=== PATIENT | female | born 1965 | race Caucasian/White ===

== ENCOUNTER 2018-12-19 17:17 | Emergency (ER) | payer BC ==
[2018-12-19] MEDS ORDERED: Sodium Chloride 0.9% 10 ML Syringe FLUSH PRN (17:55)
[2018-12-19 18:16] LABS: ANION GAP 14.7 mmol/L (5-15); CHLORIDE,CL 94 mmol/L (98-115); SODIUM,NA 131 mmol/L (136-145)
--- NOTE | 2018-12-19 18:16 | EDM.PDOC ---
ED HPI GENERAL MEDICAL PROBLEM - General Chief Complaint: General Stated Complaint: foot wound Time Seen by Provider: 12/19/18 17:54 Source of Information: Reports: Patient History Limitations: Reports: No Limitations - History of Present Illness INITIAL COMMENTS - FREE TEXT/NARRATIVE: Patient is a 53-year-old female who presents to the emergency department this evening with a complaint of right foot discomfort, odor, and concern because she hasn't had recent wound care. Patient states that she was undergoing wound care at [facility] in [place], but has not been seen there over the last week. Patient is an insulin-dependent diabetic with poor glucose control. Patient underwent retinal eye surgery at [facility] in [place] one month ago. Patient is currently being treated at the wound center in [place] for right foot concern and has even undergone hyperbaric therapy. Patient denies chest pain, fever, nausea, vomiting, diarrhea, or abdominal pain. Onset: Gradual, Unknown/Unsure Duration: Day(s): Location: Reports: Lower Extremity, Right Quality: Reports: Ache Severity: Moderate Improves with: Reports: None Worsens with: Reports: None Context: Reports: Other (Denies trauma) Associated Symptoms: Reports: No Other Symptoms Headache Pain Score (Numeric/FACES): 10 - Related Data Allergies Allergy/AdvReac Type Severity Reaction Status Date / Time latex Allergy Hives Verified 12/19/18 17:36 Penicillins Allergy Hives Verified 12/19/18 17:36 sulfur dioxide Allergy Hives Verified 12/19/18 17:36 Home Meds: Home Meds Acetaminophen [Tylenol Extra Strength] 500 mg PO Q4HR 12/19/18 [History] Aspirin [Ecotrin EC] 81 mg PO WITHDINNER 12/19/18 [History] Buprenorphine [Butrans] 1 each TD WEEKLY 12/19/18 [History] Cyclobenzaprine HCl [Amrix] 15 mg PO BEDTIME 12/19/18 [History] Erythromycin Base [Erythromycin 0.5% Ophth Oint] 1 applic EYEBOTH Q12H 12/19/18 [History] Furosemide [Lasix] 20 mg PO BID 12/19/18 [History] Insulin Isophane NPH, Human [NovoLIN N] 0 unit SQ ACBRK 12/19/18 [History] Insulin Regular, Human [NovoLIN R] 0 unit SQ WITHMEALSANDBED 12/19/18 [History] Losartan [Cozaar] 25 mg PO BEDTIME 12/19/18 [History] Meloxicam [Mobic] 15 mg PO BEDTIME 12/19/18 [History] Pregabalin [Lyrica] 75 mg PO ASDIRECTED 12/19/18 [History] Pregabalin [Lyrica] 150 mg PO BEDTIME 12/19/18 [History] atorvaSTATin Calcium [Lipitor] 40 mg PO BEDTIME 12/19/18 [History] clonazePAM [Klonopin] 0.5 mg PO ASDIRECTED PRN 12/19/18 [History] clonazePAM [Klonopin] 1 mg PO BEDTIME 12/19/18 [History] ED ROS GENERAL - Review of Systems Review Of Systems: ROS reveals no pertinent complaints other than HPI. Constitutional: Reports: No Symptoms HEENT: Reports: No Symptoms Respiratory: Reports: Shortness of Breath, Cough Cardiovascular: Reports: No Symptoms Endocrine: Reports: High Glucose GI/Abdominal: Reports: No Symptoms : Reports: No Symptoms Musculoskeletal: Reports: Foot Pain Skin: Reports: Wound (Right foot) Neurological: Reports: No Symptoms Psychiatric: Reports: No Symptoms Hematologic/Lymphatic: Reports: No Symptoms Immunologic: Reports: No Symptoms ED EXAM, GENERAL - Physical Exam Exam: See Below Exam Limited By: No Limitations General Appearance: Alert, No Apparent Distress, Other (Disheveled) Eye Exam: Bilateral Eye: Normal Inspection Nose: Normal Inspection, Normal Mucosa, No Blood Throat/Mouth: Normal Inspection, Normal Oropharynx, No Airway Compromise Head: Atraumatic, Normocephalic Neck: Normal Inspection Respiratory/Chest: No Respiratory Distress, No Accessory Muscle Use, Chest Non- Tender, Rales (Bibasilar). No: Lungs Clear, Normal Breath Sounds Cardiovascular: No Murmur, Tachycardia Peripheral Pulses: 0: Posterior Tibial (R) (Pulse weak but evident with Doppler) , Dorsalis Pedis (R) (Pulse weak but evident with Doppler), 1+: Posterior Tibial (L), Dorsalis Pedis (L) GI/Abdominal: Normal Bowel Sounds, Soft, Non-Tender Back Exam: Normal Inspection. No: CVA Tenderness (L), CVA Tenderness (R) Extremities: Other (Venous stasis changes bilaterally with Necrotic toes, 2,4 and 5 of right foot) Neurological: Normal Cognition Psychiatric: Normal Affect, Normal Mood Skin Exam: Other (Venous stasis changes bilaterally, Right foot second, fourth, and fifth toes necrotic. Dorsal aspect of foot with bullous hematoma) Course - Vital Signs Last Recorded V/S: Last Vital Signs Temp 99.8 F 12/19/18 18:38 Pulse 118 H 12/19/18 18:38 Resp 28 H 12/19/18 18:38 BP 160/56 H 12/19/18 18:38 Pulse Ox 84 L 12/19/18 18:38 - Orders/Labs/Meds Orders: Active Orders 24 hr Category Date Time Status Peripheral IV Care [RC] . DIRECTED Care 12/19/18 17:56 Ordered CULTURE BLOOD [BC] Stat Lab 12/19/18 17:56 Ordered Sodium Chloride 0.9% @ 999 MLS/HR (1000ml) Med 12/19/18 19:28 Ordered Sodium Chloride 0.9% [Normal Saline] 1,000 ml IV .BOLUS Sodium Chloride 0.9% [Saline Flush] Med 12/19/18 17:55 Ordered 10 ml FLUSH Q8HR PRN ceFAZolin [Ancef] 2 gm Med 12/19/18 19:09 Ordered Sodium Chloride 0.9% [Normal Saline] 100 ml IV ONETIME Blood Culture x2 Reflex Set [OM.PC] Stat Oth 12/19/18 17:55 Ordered Peripheral IV Insertion Adult [OM.PC] Routine Oth 12/19/18 17:55 Ordered Medication Orders Cefazolin Sodium 2 gm/ Sodium (Chloride) 100 mls @ 100 mls/hr IV ONETIME ONE Stop: 12/19/18 20:08 Sodium Chloride (Normal Saline) 1,000 mls @ 999 mls/hr IV .BOLUS ONE Stop: 12/19/18 20:28 Sodium Chloride (Saline Flush) 10 ml FLUSH Q8HR PRN PRN Reason: keep vein open Labs: Laboratory Tests 12/19/18 12/19/18 12/19/18 Range/Units 17:40 17:40 17:40 WBC 18.60 H (5.00-10.00) 10^3/uL RBC 3.38 L (3.80-5.50) 10^6/uL Hgb 10.1 L (12.0-16.0) g/dL Hct 31.2 L (37.0-47.0) % MCV 92.3 H (82.0-92.0) fL MCH 29.9 (27.0-31.0) pg MCHC 32.4 (32.0-36.0) g/dL RDW 15.6 H (11.5-14.5) % Plt Count 215 (150-400) 10^3/uL MPV 9.9 (7.4-10.4) fL Immature Gran % (Auto) 4.2 (0.0-5.0) % Neut % (Auto) 83.9 H (50.0-70.0) % Lymph % (Auto) 5.3 L (20.0-40.0) % [place] % (Auto) 5.5 (2.0-8.0) % Eos % (Auto) 0.9 L (1.0-3.0) % Baso % (Auto) 0.2 (0.0-1.0) % Immature Gran # (Auto) 0.79 H (0.00-0.50) 10^3/uL Neut # (Auto) 15.61 H (2.50-7.00) 10^3/uL Lymph # (Auto) 0.98 L (1.00-4.00) 10^3/uL [place] # (Auto) 1.03 H (0.10-0.80) 10^3/uL Eos # (Auto) 0.16 (0.10-0.30) 10^3/uL Baso # (Auto) 0.03 (0.00-0.10) 10^3/uL Sodium 131 L (136-145) mmol/L Potassium 5.4 H (3.3-5.3) mmol/L Chloride 94 L (98-115) mmol/L Carbon Dioxide 27.7 (21.0-32.0) mmol/L Anion Gap 14.7 (5-15) mmol/L BUN 37 H (6-25) mg/dL Creatinine 1.95 H (0.51-1.17) mg/dL Est Cr Clr Drug Dosing TNP Estimated GFR (MDRD) 27 mL/min Glucose 332 H (75 - 99) mg/dL Lactic Acid (0.4-2.0) mmol/L Calcium 8.6 L (8.7-10.3) mg/dL Total Bilirubin 1.8 H (0.2-1.0) mg/dL AST 93 H (15-37) U/L ALT 95 H (12-78) U/L Alkaline Phosphatase 352 H (46-116) IU/L B-Natriuretic Peptide 119 H (0-100) pg/mL Total Protein 6.5 (6.4-8.2) g/dL Albumin 1.80 L (3.00-4.80) g/dL 12/19/18 Range/Units 17:40 WBC (5.00-10.00) 10^3/uL RBC (3.80-5.50) 10^6/uL Hgb (12.0-16.0) g/dL Hct (37.0-47.0) % MCV (82.0-92.0) fL MCH (27.0-31.0) pg MCHC (32.0-36.0) g/dL RDW (11.5-14.5) % Plt Count (150-400) 10^3/uL MPV (7.4-10.4) fL Immature Gran % (Auto) (0.0-5.0) % Neut % (Auto) (50.0-70.0) % Lymph % (Auto) (20.0-40.0) % [place] % (Auto) (2.0-8.0) % Eos % (Auto) (1.0-3.0) % Baso % (Auto) (0.0-1.0) % Immature Gran # (Auto) (0.00-0.50) 10^3/uL Neut # (Auto) (2.50-7.00) 10^3/uL Lymph # (Auto) (1.00-4.00) 10^3/uL [place] # (Auto) (0.10-0.80) 10^3/uL Eos # (Auto) (0.10-0.30) 10^3/uL Baso # (Auto) (0.00-0.10) 10^3/uL Sodium (136-145) mmol/L Potassium (3.3-5.3) mmol/L Chloride (98-115) mmol/L Carbon Dioxide (21.0-32.0) mmol/L Anion Gap (5-15) mmol/L BUN (6-25) mg/dL Creatinine (0.51-1.17) mg/dL Est Cr Clr Drug Dosing Estimated GFR (MDRD) mL/min Glucose (75 - 99) mg/dL Lactic Acid 2.8 H (0.4-2.0) mmol/L Calcium (8.7-10.3) mg/dL Total Bilirubin (0.2-1.0) mg/dL AST (15-37) U/L ALT (12-78) U/L Alkaline Phosphatase (46-116) IU/L B-Natriuretic Peptide (0-100) pg/mL Total Protein (6.4-8.2) g/dL Albumin (3.00-4.80) g/dL Meds: Medications Generic Name Dose Route Start Last Admin Trade Name Freq PRN Reason Stop Dose Admin Cefazolin Sodium 2 gm/ Sodium 100 mls @ 100 mls/hr 12/19/18 19:09 Chloride IV 12/19/18 20:08 ONETIME ONE Sodium Chloride 1,000 mls @ 999 mls/hr 12/19/18 19:28 Normal Saline IV 12/19/18 20:28 .BOLUS ONE Sodium Chloride 10 ml 12/19/18 17:55 Saline Flush FLUSH Q8HR PRN keep vein open Discontinued Medications Generic Name Dose Route Start Last Admin Trade Name Freq PRN Reason Stop Dose Admin Sodium Chloride Confirm 12/19/18 19:30 Normal Saline Administered 12/19/18 19:31 Dose 1,000 mls @ as directed .ROUTE .K-MED ONE - Radiology Interpretation Free Text/Narrative:: Chest x-ray shows no acute cardiopulmonary process Right foot x-ray shows extensive soft tissue edema involving the dorsum without evidence of acute osteomyelitis - Re-Assessments/Exams Free Text/Narrative Re-Assessment/Exam: 12/19/18 19:31 Patient afebrile, vital signs stable, patient resting comfortably. Patient given 2 g Ancef and 1 L fluid in the emergency department. Discussed case with Dr. Nichole, internal medicine at [facility], patient will be transferred there for higher level of care. Departure - Departure Time of Disposition: 19:43 Disposition: DC/Tfer to [facility] 02 Condition: Serious Clinical Impression: Vascular disorder of lower extremity, Insulin dependent diabetes mellitus, Hyperglycemia, Diabetic foot infection Leukocytosis Qualifiers: Leukocytosis type: unspecified Qualified Code(s): D72.829 - Elevated white blood cell count, unspecified - Discharge Information Referrals: PCP,Not In Area [Primary Care Provider] - Forms: ED Department Discharge - My Orders Last 24 Hours: My Active Orders 12/19/18 17:55 Sodium Chloride 0.9% [Saline Flush] 10 ml FLUSH Q8HR PRN Blood Culture x2 Reflex Set [OM.PC] Stat Peripheral IV Insertion Adult [OM.PC] Routine 12/19/18 17:56 Peripheral IV Care [RC] . DIRECTED CULTURE BLOOD [BC] Stat 12/19/18 19:09 ceFAZolin [Ancef] 2 gm Sodium Chloride 0.9% [Normal Saline] 100 ml IV ONETIME 12/19/18 19:28 Sodium Chloride 0.9% @ 999 MLS/HR (1000ml) Sodium Chloride 0.9% [Normal Saline] 1,000 ml IV .BOLUS - Assessment/Plan Last 24 Hours: My Active Orders 12/19/18 17:55 Sodium Chloride 0.9% [Saline Flush] 10 ml FLUSH Q8HR PRN Blood Culture x2 Reflex Set [OM.PC] Stat Peripheral IV Insertion Adult [OM.PC] Routine 12/19/18 17:56 Peripheral IV Care [RC] . DIRECTED CULTURE BLOOD [BC] Stat 12/19/18 19:09 ceFAZolin [Ancef] 2 gm Sodium Chloride 0.9% [Normal Saline] 100 ml IV ONETIME 12/19/18 19:28 Sodium Chloride 0.9% @ 999 MLS/HR (1000ml) Sodium Chloride 0.9% [Normal Saline] 1,000 ml IV .BOLUS Assessment:: Right foot infection Plan: Transferred to [place]
--- NOTE | 2018-12-19 19:00 | CR ---
[id number] RAD/RAD Chest PA or AP 1V EXAM: RAD Chest PA or AP 1V INDICATION: FOOT INFECTION. COMPARISON: None. DISCUSSION: Cardiomediastinal silhouette is stable in size and contour. No infiltrate, effusion, pneumothorax, or edema. IMPRESSION: No acute cardiopulmonary abnormality. Kamaljit Velázquez DO 12/19/18 0707 Thank you for allowing us to participate in the care of your patient.
--- NOTE | 2018-12-19 19:06 | CR ---
[id number] RAD/RAD Foot Right 2V EXAM: 2 VIEWS RIGHT FOOT. INDICATION: FOOT INFECTION. COMPARISON: None. DISCUSSION: No fracture, dislocation or other acute osseous abnormality. Extensive soft tissue edema especially involving the dorsum of the right foot. No radiographic evidence of acute osteomyelitis. Vascular calcifications. IMPRESSION: 1. No radiographic evidence of acute osteomyelitis. Kamaljit Velázquez DO 12/19/18 0652 Thank you for allowing us to participate in the care of your patient.
[2018-12-19] MEDS: Sodium Chloride 0.9% 1,000 ML IV ONE (19:46)
[2018-12-19] MEDS: ceFAZolin 2 GM in Sodium Chloride 0.9% 100 ML IV ONE (19:47)
[2018-12-19] MEDS: Sodium Chloride 0.9% 1,000 ML ONE (19:49)
[2018-12-19] MEDS: Acetaminophen 325 MG Tab PO ONE (21:07)
== END 2018-12-19 20:05 ==
LOC: KA.ED 17:17
DX: E11.628 Type 2 diabetes mellitus with other skin complications (principal); L08.9 Local infection of the skin and subcutaneous tissue, unspecified; E11.65 Type 2 diabetes mellitus with hyperglycemia; I73.9 Peripheral vascular disease, unspecified; D72.829 Elevated white blood cell count, unspecified; Z91.040 Latex allergy status; Z88.0 Allergy status to penicillin; Z88.8 Allergy status to other drugs, medicaments and biological substances; Z79.82 Long term (current) use of aspirin; Z79.899 Other long term (current) drug therapy; Z79.4 Long term (current) use of insulin
CPT/HCPCS: 36415; 71045; 73620-RT; 80053; 82962; 83605; 83880; 85025; 87040; 87077; 96374; 99285-25; J0690; J7030; J7050